=== PATIENT | female | born 1950 | race Caucasian/White ===

== ENCOUNTER → 2017-08-29 | Outpatient (CLI) | payer MEDICARE, BC ==
[~2017-08-29] MED LIST: ACIDOPHILUS1 EAC3 PO; ALLERGY10 M1; AMLODIPINE BESYL5 MG; ASPIRIN EC81 M1; B-100 COMPLEX1 EAC1; BACTRIM DS TAB1 EAC1 PO; BEE POLLEN500 M1; CALCIUM CITRAT1 EA14; CRANBERRY400 MG; FIBER CHOICE C1.5 GM; FLEXERIL PO; OMEGA 3-6-9 CO1 EACH; PRINZIDE 20-251 EACH; SIMVASTATIN40 MG; SINGULAIR 10 MG10 M1 PO; TESSALON PERLE100 MG PO; ZIAC 10-6.25 M1 EACH; ZPAK PO
== END ==
LOC: M.RAD 09:27
DX: Z12.31 Encounter for screening mammogram for malignant neoplasm of breast (principal)

== ENCOUNTER → 2018-07-10 | Outpatient (CLI) | payer MEDICARE, BC | LOC: M.RAD 09:00 | DX: M81.0 Age-related osteoporosis without current pathological fracture (principal); M47.897 Other spondylosis, lumbosacral region; G89.29 Other chronic pain ==

== ENCOUNTER → 2018-09-05 | Outpatient (CLI) | payer MEDICARE, BC | LOC: M.RAD 09:28 | DX: Z12.31 Encounter for screening mammogram for malignant neoplasm of breast (principal) ==

== ENCOUNTER → 2019-09-19 | Outpatient (CLI) | payer MEDICARE, OTHER | LOC: M.RAD 08:02 | DX: Z12.31 Encounter for screening mammogram for malignant neoplasm of breast (principal) ==

== ENCOUNTER → 2019-09-19 | Outpatient (CLI) | payer OTHER | LOC: M.CT 07:48 | DX: Z13.6 Encounter for screening for cardiovascular disorders (principal) ==

== ENCOUNTER → 2020-10-13 | Outpatient (CLI) | payer MEDICARE, BC | LOC: M.ULTRA 10:31 | PROVIDERS: ATTEND Family Medicine | DX: M17.12 Unilateral primary osteoarthritis, left knee (principal); M25.462 Effusion, left knee; R60.0 Localized edema ==

== ENCOUNTER → 2020-11-23 | Outpatient (CLI) | payer MEDICARE, OTHER | LOC: M.RAD 09:55 | PROVIDERS: ATTEND Family Medicine | DX: Z12.31 Encounter for screening mammogram for malignant neoplasm of breast (principal) ==

== ENCOUNTER 2020-12-16 13:18 | Emergency (ER) | payer MEDICARE, OTHER ==
[~2020-12-16] VITALS: Ht 154.9 cm; Wt 74.4 kg
[~2020-12-16 13:18] MED LIST changes: -AMLODIPINE BESYL5 MG; +NORVASC10 MG PO
[2020-12-16] MEDS ORDERED: LISINOPRIL20 MG PO (13:36)
[2020-12-16] MEDS ORDERED: TOPROL XL50 MG PO (13:38)
[2020-12-16 13:49] LABS: URINE BILIRUBIN NEGATIVE (Negative); URINE BLOOD TRACE (Negative); URINE COLOR YELLOW; URINE GLUCOSE-RANDOM NEGATIVE (Negative); URINE KETONES NEGATIVE (Negative); URINE LEUKOCYTES-REFLEX TRACE (Negative); URINE NITRITE-REFLEX NEGATIVE (Negative); URINE PROTEIN NEGATIVE (Negative); URINE SPECIFIC GRAVITY 1.015 (1.005-1.030); URINE UROBILINOGEN 0.2 E.U./dl (0.2-1.0)
[2020-12-16 13:52] LABS: URINE CLARITY HAZY
[2020-12-16 14:02] LABS: BACTERIA-REFLEX None Seen /HPF (None Seen); CASTS None Seen /LPF (None Seen); CRYSTALS None Seen /LPF (None Seen); SQUAMOUS 0-3 Few /LPF (0-3); URINE RBC None Seen /HPF (0-2); URINE WBC-REFLEX 0-5 Rare /HPF (0-5)
[2020-12-16 14:06] LABS: ABSOLUTE EOSINOPHILS 0.1 thou/uL (0.0-0.7); ABSOLUTE LYMPHOCYTES 1.5 thou/uL (0.8-5.3); ABSOLUTE MONOCYTES 0.4 thou/uL (0.0-1.2); ABSOLUTE NEUTROPHILS 3.4 thou/uL (1.6-8.1); BASOPHILS 0.4 %; EOSINOPHILS 2.2 %; HEMATOCRIT 40.5 % (37.0-47.0); HEMOGLOBIN 13.4 gm/dL (12.0-15.0); LYMPHOCYTES 27.8 %; MCV 84.8 fL (80.0-100.0); MONOCYTES 7.4 %; MPV 8.7 fl. (7.2-11.1); NUCLEATED RBCS 0 /100WBC; PLATELET COUNT* 228 thou/uL (150-400); POLYS 62.2 %; RBC 4.77 mil/uL (4.20-5.00); RDW-CV 13.3 % (10.5-14.5); WBC 5.5 thou/uL (4.0-11.0)
[2020-12-16 14:17] LABS: CALCIUM 9.3 mg/dL (8.5-10.1); CREATININE 0.9 mg/dL (0.6-1.3); POTASSIUM 3.4 mmol/L (3.5-5.1)
[2020-12-16 14:32] LABS: ALBUMIN 4.1 g/dL (3.4-5.0); TOTAL BILIRUBIN 0.4 mg/dL (<0.1-1.0); TOTAL PROTEIN 8.2 g/dL (6.4-8.2)
[2020-12-16 15:13] VITALS: BP 135/72
--- NOTE | 2020-12-16 16:02 | EKG ---
[place] [address] ELECTROCARDIOGRAM REPORT Name: SANTIAGO YAP Room: [facility]#: [id number] Admission: 12/16/20 Attend Phys: Discharge: 12/16/20 Date of : 46 Date of Service: 12/16/20 1353 Report #: [id number] THIS REPORT FOR: //name// [facility] ED Test Date: 2020-12-16 Test Time: 13:53:48 Pat Name: SANTIAGO YAP Department: Room: Gender: [place] [employer]: : 1950 Requested By: Ravinder Fiore Order Number: [id number] MD: Guillermo Ledezma Measurements Intervals [place] Rate: 72 P: 21 UT: 177 QRS: 17 QRSD: 84 T: 30 QT: 402 QTc: 440 Interpretive Statements Sinus rhythm Compared to ECG 06/04/2016 07:50:02 No significant changes Electronically Signed On 12-16-2020 16:02:28 CDT by Guillermo Ledezma [email or web address] <ELECTRONICALLY SIGNED> By: Guillermo Ledezma MD, [facility] 12/16/20 1602 1353 1353 Guillermo Ledezma MD, [facility] /EPI
== END 2020-12-16 15:14 | disposition home or self-care (01) ==
LOC: M.ERS 13:18
PROVIDERS: Physician Assistant
DX: I10 Essential (primary) hypertension (principal); R42 Dizziness and giddiness; I48.91 Unspecified atrial fibrillation; Z88.0 Allergy status to penicillin; Z79.899 Other long term (current) drug therapy; Z79.82 Long term (current) use of aspirin

== ENCOUNTER → 2020-12-31 | Outpatient (CLI) | payer MEDICARE, OTHER ==
[~2020-12-31] MED LIST changes: +LISINOPRIL20 MG PO; +TOPROL XL50 MG PO
== END ==
LOC: M.MRI 12:50
PROVIDERS: ATTEND Family Medicine
DX: S83.281A Other tear of lateral meniscus, current injury, right knee, initial encounter (principal); M25.562 Pain in left knee; G89.29 Other chronic pain; X58.XXXA Exposure to other specified factors, initial encounter; Y93.89 Activity, other specified; Y92.89 Other specified places as the place of occurrence of the external cause; Y99.8 Other external cause status

== ENCOUNTER → 2021-01-25 | Outpatient (CLI) | payer MEDICARE, BC ==
[~2021-01-25] MED LIST changes: +COQ-10100 MG PO; +CRANBERRY200 MG PO; +OMEPRAZOLE 20 M20 M1 PO; +VITAMIN D325 MC3 PO
[2021-01-25 10:19] LABS: HEMATOCRIT 39.4 % (37.0-47.0); HEMOGLOBIN 13.2 gm/dL (12.0-15.0); MCHC 33.5 g/dL (28.0-37.0); MCV 86.4 fL (80.0-100.0); RBC 4.56 mil/uL (4.20-5.00); RDW-CV 13.4 % (10.5-14.5); WBC 6.5 thou/uL (4.0-11.0)
[2021-01-25 10:28] LABS: APTT 23.8 Seconds (25.0-31.3); PROTIME 10.5 Seconds (9.20-11.50)
[2021-01-25 10:38] LABS: CALCIUM 9.1 mg/dL (8.5-10.1); CREATININE 0.9 mg/dL (0.6-1.3); POTASSIUM 3.5 mmol/L (3.5-5.1); TOTAL BILIRUBIN 0.3 mg/dL (<0.1-1.0); TOTAL PROTEIN 7.4 g/dL (6.4-8.2)
--- NOTE | 2021-01-25 11:29 | EKG ---
[place] [address] ELECTROCARDIOGRAM REPORT Name: SANTIAGO YAP Room: [facility]#: [id number] Admission: 01/25/21 Attend Phys: Salomon Maldonado DO Discharge: Date of : 46 Date of Service: 01/25/21 1031 Report #: [id number] THIS REPORT FOR: //name// [facility] Test Date: 2021-01-25 Test Time: 10:31:48 Pat Name: SANTIAGO YAP Department: Room: Gender: Awning Hanger: : 1950 Requested By: Salomon Maldonado Order Number: [id number] Reading MD: Isac Rahman Measurements Intervals [place] Rate: 63 P: -12 UT: 167 QRS: 31 QRSD: 83 T: 35 QT: 423 QTc: 434 Interpretive Statements Sinus rhythm Compared to ECG 12/16/2020 13:53:48 No significant changes Electronically Signed On 01-25-2021 11:29:13 CDT by Isac Rahman [email or web address] <ELECTRONICALLY SIGNED> By: Isac Rahman MD, [facility] 01/25/21 1129 1031 103 Isac Rahman MD, [facility] /EPI
== END ==
LOC: M.LAB 09:57
PROVIDERS: ATTEND Orthopaedic Surgery
DX: Z01.812 Encounter for preprocedural laboratory examination (principal); Z96.652 Presence of left artificial knee joint

== ENCOUNTER 2021-01-31 09:55 | Inpatient (IN) | payer MEDICARE, BC ==
[~2021-01-31] VITALS: Ht 154.9 cm; Wt 74.4 kg
--- NOTE | ~2021-01-31 | OP ---
[address] [address] OPERATIVE REPORT Name: SANTIAGO YAP Room: [address] [place] .R.#: [id number] Admission: 01/31/21 Attend Phys: Km Kenney Discharge: Date of : 46 Report #: [id number] THIS REPORT FOR: cc: Viky Mullins Linda J. DO Paul,Salomon Werner DO ~ DOC #: [id number] Salomon Maldonado DO DATE OF SURGERY: 01/31/2021 PREOPERATIVE DIAGNOSIS: Advanced degenerative joint disease, left knee. POSTOPERATIVE DIAGNOSIS: Advanced degenerative joint disease, left knee. PROCEDURE PERFORMED: Left total knee arthroplasty utilizing Biomet Vanguard system with the following components: 1. A 62.5 mm femoral component. 2. Size 71 tibial baseplate. 3. Size 14 anterior stabilized polyethylene component. SURGEON: Salomon Maldonado DO. HYDRO STATION OPERATOR: Rose Briceno PA-C; and Jony Marrero DO. ANESTHESIA: Spinal with a continuous adductor canal block. ESTIMATED BLOOD LOSS: 150. SPECIMENS: None. COMPLICATIONS: None. DISPOSITION: Stable to PACU. ANTIBIOTICS: 2 grams IV Ancef preop. TOURNIQUET: None. INDICATIONS: The patient is a 70-year-old female who we followed in clinic for quite some regarding left knee pain. Exam and imaging consistent with DJD. She tried and failed conservative measures. She continued to have pain on a daily basis, interfering with her ADLs. It is therefore recommend she undergo arthroplasty. DESCRIPTION OF PROCEDURE: The patient was seen in the preoperative area. Written consent was obtained. The operative site was marked. She was brought [address] [address] OPERATIVE REPORT Name: SANTIAGO YAP Room: [address] [place] [facility].#: [id number] Admission: 01/31/21 Attend Phys: Km Kenney Discharge: Date of : 46 Report #: [id number] back to the operative suite, given benefit of a spinal anesthetic. A well-padded pneumatic tourniquet was applied to the left proximal thigh. Left lower extremity was then prepped and draped in normal sterile fashion. A surgical timeout was performed confirming side, site and procedure were verified. The patient is in agreement. The procedure began with creation of a standard midline incision and sharp dissection through skin and subcutaneous fat. We then used a new blade to create a standard medial parapatellar arthrotomy. Medial capsular sleeve was created. Anterior horn of the medial and lateral menisci were incised. Patella was everted. Fat pad was excised. We used a drill to localize the femoral canal. The intramedullary guide was used to pin the distal femoral cutting block in place in 5 degrees of valgus with a standard 10 mm cut. Cut was made in standard fashion. Excess bone was removed. We turned our attention to the tibia. The extramedullary tibial guide was aligned along the tibial crest into the ankle and second ray. We measured 10 mm off the high lateral side. It was pinned in place and standard cut was made. The excess bone was removed. Knee was brought to full extension. The extension block was able to be inserted. We then turned our attention back to the femur. The AP sizing guide measured a 62.5. This was pinned in 3 degrees of valgus, referencing the posterior condyle. The appropriate size 4-in-1 cutting block was pinned into place and cuts were made in standard fashion. Excess bone was removed. At this point, we removed the remainder of the menisci as well as the ACL and PCL. Tibia sized to a 71. This was pinned into place, referencing the medial third of the tibial tubercle. The trial femoral component was placed. We trialed poly length up to a 14, which gave us good motion, full flexion and extension with good stability. At this point, we examined our patellar component. It felt quite thin. We used a caliper to measure in the lateral facet. It measured as thin her the maximal thickness on the lateral facet was 8 mm. This was less than what is needed to hold the femoral component. We therefore decided to not resurface the patella in order to reduce risk of fracture. The patella was denervated with electrocautery. At this point, the lugs were drilled for the femoral component. We removed the remainder of the trial components. The tibia was prepped in a standard fashion with the drill followed by the cruciform punch. All remaining trial components were removed. Bone was thoroughly irrigated with pulsatile lavage. We injected the orthopedic cocktail in the posterior capsule. The final components were opened and cement was mixed on the back table. The final components were impacted into place. Excess cement was removed. We trialed components to a 14, which gave good stability, full motion. We therefore opened and impacted the size 14 mm poly and the locking bar was placed in standard fashion. The knee was thoroughly lavaged. Vancomycin powder was applied throughout the wound. The capsular layer was closed with #1 Vicryl in [id number] fashion, reinforced with a running #1 Stratafix. Subcutaneous tissue was closed with a 2-0 Monocryl and the skin was reapproximated with a running 3-0 Stratafix. A Dermabond skin glue as well as Mepilex was placed. The patient was awoken from anesthesia and transferred to PACU in stable [place] [address] OPERATIVE REPORT Name: SANTIAGO YAP Room: [address] [place] [facility].#: [id number] Admission: 01/31/21 Attend Phys: Km Kenney Discharge: Date of : 46 Report #: [id number] complications. Needle and sponge counts were correct x 2. Dr. Maldonado was present for all critical aspects of the case. Salomon Maldonado DO RFP/BHANU By: [id number] Maldonado DO /nt
[2021-01-31] MEDS ORDERED: LOSARTAN-HCTZ1 EAC3 PO (12:54)
[2021-01-31 12:55] VITALS: BP 134/74
--- NOTE | 2021-01-31 19:57 | NUR ---
I ASSUMED CARE OF THE PATIENT AT 1540. SHE IS ALERT AND ORIENTED X4 BUT SLEEPY. BED IS IN THE LOW LOCKED POSITION AND CALL LIGHT IS IN REACH. HOURLY ROUNDING IS COMPLETED AND PATIENT NEEDS ARE MET. DAUGHTER IS AT THE BEDSIDE. FLUIDS ARE INFUSING AND SHE IS N/V. PRN MEDS ARE GIVEN PER EMAR. PATIENT IS DIAPHORETIC AND RESPIRATIONS DECREASED. SHE AROUSES EASILY AND DENIES PAIN. DRESSING IS C/D/I AND ICE IS APPLIED. SHE IS REPOSITIONED EVERY 2 HOURS. A ONE TIME NARCAN ORDER IS OBTAINED IF NEEDED. WILL CONTINUE TO MONITOR.
[2021-01-31 20:30] VITALS: BP 136/75
[2021-02-01 00:19] VITALS: BP 136/74
[2021-02-01 04:23] VITALS: BP 162/84
[2021-02-01 04:46] LABS: HEMATOCRIT 34.9 % (37.0-47.0); HEMOGLOBIN 11.7 gm/dL (12.0-15.0)
--- NOTE | 2021-02-01 07:44 | NUR ---
PATIENT SLEPT MOST OF THE NIGHT. PATIENT REMAINED VERY DROWSY FROM PAIN MEDS AND ANESTHSIA FOR GOOD PART OF THE NIGHT BUT RESPIRATION RATE DID INCREASE BACK TO NORMAL. PATIENT WAS GIVEN ZOFRAN TWICE FOR NAUSEA. IV FLUIDS AND ANTIBIOTICS WERE GIVEN ORDERED. DRESSING TO LEFT KNEE REMAINS INTACT. PATIENT WAS HAVING TO PEE ABOUT EVERY HOUR BUT WAS ONLY VOIDING 100-200 ML AT A TIME. PATIENT WAS BLADDER SCAN SHOWED 700. DR WILKERSON WAS NOTIFIED ORDER TO STRAIGHT CATH WAS RECEIVED. PATIENT HAD 1000 ML OUT OF LIGHT YELLOW URINE FROM CATH. WILL CONTINUE TO MONITOR.
[2021-02-01 08:00] VITALS: BP 138/101
--- NOTE | 2021-02-01 10:51 | NUR ---
PT LIVES HOME WITH SPOUSE. SPOUSE CURRENTLY AT [facility] AT [facility]. PT IS INDEDPENDENT W/CARES, ACTIVE AND DRIVES A VEHICLE. PT HAS SPOUSE OLD WALKER IF NEEDED. PT PREFERS HH VS SNF AND HAS SUPPORT FROM DTR, SARAHY WHO WILL BE STAYING W/PT DURING DAY AND PT INDICATED HER DTRS AND NIECE WILL ASLO HELP NEEDED. SARAHY YAP NUMBER [phone].
[2021-02-01] MEDS ORDERED: ELIQUIS5 MG PO (11:27)
[2021-02-01 12:20] VITALS: BP 126/60
[2021-02-01 16:01] VITALS: BP 139/77
--- NOTE | 2021-02-01 18:30 | NUR ---
PT SITTING IN BED AT THIS TIME. PT ALERT AND ORIENTED X 4. PT UP WITH STANDBY ASSIST AND WALKER. PT UP TO THE BATHROOM. PT ALSO WORKED WITH THERAPY. PT HAS BEEN NAUSEATED TODAY. EMESIS X 3. SOME RELIEF WITH ZOFRAN. NOTIED AND ADDITIONAL ORDERS GIVEN. PT HAD POOR PO INTAKE THIS SHIFT. IVF REMAIN INFUSING AT THIS TIME. FALL PRECAUTIONS REMAIN IN PLACE. PT GIVEN PRN PAIN MEDICATIONS WITH SOME RELIEF THIS SHIFT. PT STATES SHE IS ALLERGIC TO CODEINE AND DOES NOT WANT TO TAKE OXYCODONE. PT ALSO STATES SHE IS LACTOSE INTOLERANT BUT ATE ICE CREAM THIS SHIFT. WILL CONTINUE TO MONITOR.
[2021-02-01 21:16] VITALS: BP 145/66
[2021-02-02 04:08] LABS: HEMATOCRIT 30.9 % (37.0-47.0); HEMOGLOBIN 10.5 gm/dL (12.0-15.0)
--- NOTE | 2021-02-02 05:24 | NUR ---
PT ALERT AND ORIENTED BUT WITH SOME CONFUSION. SHE IS UP STANDBY ASSIST WITH WALKER/GAIT BELT TO RESTROOM. SHE GETS PAIN RELIEF FROM TYLENOL AND WILL ASK WHEN NEEDED. SHE HAS NILA HOSE, FOOT PUMPS, ON QUE PUMP IN PLACE. NO REPORTS OF N/V THIS SHIT. SHE HAS BEEN ON ROOM AIR ALL NIGHT. RECEIVED ALL MEDS SCHEDULED. WILL CONTINUE TO MONITOR.
[2021-02-02 08:10] VITALS: BP 167/80
[2021-02-02] MEDS ORDERED: TRAMADOL 50 MG50 MG PO (10:07)
[2021-02-02] MEDS ORDERED: OXYCODONE HCL 55 MG PO (10:07)
--- NOTE | 2021-02-02 11:53 | NUR ---
pt d/cg [facility]. family selected specialized hh. cm faxed order to [phone].
[2021-02-02 11:55] VITALS: BP 167/80
[2021-02-02 13:01] VITALS: BP 167/80
--- NOTE | 2021-02-02 14:45 | NUR ---
PT ALERT AND ORIENTED BUT FORGETFUL. LEVONHTER AND GRAND-DAUGHTER AT BEDSIDE. IV TAKEN OUT WITH CATHETER INTACT. PT STEADY WITH STANDBY ASSIST AND WALKER. SURGICAL BANDAGE REMAINS IN PLACE. ON Q PUMP TO INFUSE ONE MORE DAY. PT EDUCATION ON HOW TO REMOVE PUMP. ALSO GIVEN EDUACATIONAL BROCHURE ON PUMP. PT GIVEN ZOFRAN PRIOR TO DISCHARGE. PT TOLERATING FOOD AND FLUIDS. ENCOURAGED PO INTAKE. DENIES PAIN AT THIS TIME. DECLINED OXYCODONE FOR PAIN THIS SHIFT. STATES UNDERSTANDING TO DISCHARGE INSTRUCTIONS. PT TO FOLLOW UP WITH DR. HAUSER. [facility] ARRANGED FOR PATIENT.
[2021-02-02 18:13] VITALS: BP 167/80
== END 2021-02-02 14:45 | disposition home health service (06) | DRG 470 ==
LOC: M.TBA 09:55 → M.ORTHSURG 12:18 → M.TBA 14:21 → M.ORTHSURG 14:21
PROVIDERS: Orthopaedic Surgery; ADMIT Internal Medicine; ATTEND Internal Medicine
PROC: 0SRD0J9 Replacement of Left Knee Joint with Synthetic Substitute, Cemented, Open Approach (ICD-10-PCS; principal; 2021-01-31)
PROC: 3E0T3BZ Introduction of Anesthetic Agent into Peripheral Nerves and Plexi, Percutaneous Approach (ICD-10-PCS; principal; 2021-01-31)
DX: M17.12 Unilateral primary osteoarthritis, left knee (principal); I10 Essential (primary) hypertension; I48.91 Unspecified atrial fibrillation; Z88.0 Allergy status to penicillin; Z79.899 Other long term (current) drug therapy; Z79.4 Long term (current) use of insulin; Z79.82 Long term (current) use of aspirin

== ENCOUNTER → 2021-09-19 | Outpatient (CLI) | payer MEDICARE, BC ==
[~2021-09-19] MED LIST changes: +ELIQUIS5 MG PO; +LOSARTAN-HCTZ1 EAC3 PO; +OXYCODONE HCL 55 MG PO; +TRAMADOL 50 MG50 MG PO
== END ==
LOC: M.RAD 09:15
PROVIDERS: ATTEND Family Medicine
DX: M85.88 Other specified disorders of bone density and structure, other site (principal); M81.0 Age-related osteoporosis without current pathological fracture